=== PATIENT | female | born 1995 | race Caucasian/White ===

== ENCOUNTER 2016-10-04 09:19 | Day surgery (SDC) | payer BC ==
[~2016-10-04 09:19] MED LIST: BRIDION 200MG/2ML IV ONE; DIPRIVAN 200 MG/20 ML IV ONE; Decadron 4 MG INJ IV ONE; Quelicin Fliptop 200 MG/10 ML IV ONE; SUBLIMAZE 100 MCG/2 ML IV ONE; TORAdol 30 mg Injection IV ONE; Versed 2 MG/2 ML Injection IV ONE; Zemuron 100 MG/10 ML IV ONE; Zofran 4 MG/2 ML VIAL IV ONE
[2016-10-04] MEDS ORDERED: MEFOXIN 2 GM PREMIX** 50 ML IV ONE (09:24)
[2016-10-04] MEDS ORDERED: Pepcid 20 MG VIAL IV ONE (09:24)
[2016-10-04] MEDS ORDERED: Lactated Ringers 1,000 ML IV SCH (09:30)
--- NOTE | 2016-10-04 11:59 | HP ---
PROCEDURE DATE: 10/04/16 HISTORY OF PRESENT ILLNESS: The patient is a 22 y/o who recently had a 2nd attack since she has been . She delivered about 10 months ago. Has had some diarrhea and nausea with spicy food/greasy food and some upper abdominal pain radiating to her back. US showed cholelithiasis. [place] she had symptomatic cholelithiasis, chronic cholecystitis. PAST MEDICAL HISTORY: She had some type 2 diabetes, but no symptoms over the past year. It is unclear whether that was any gestational diabetes or not, but she says she hasn't had any symptoms over the past year. CURRENT MEDICATIONS: None. ALLERGIES: SULFA, SHELLFISH, AND PEANUTS. PAST SURGICAL HISTORY: She had cystoscopy in the past. FAMILY HISTORY: Diabetes, heart disease. SOCIAL HISTORY: No smoking or alcohol abuse. REVIEW OF SYSTEMS: 10 systems reviewed. No chest pains or palpitations. Other systems negative or noncontributory other than above and per preadmission questionnaire. PHYSICAL EXAMINATION: GENERAL: No acute distress. HEENT: Sclerae nonicteric. NECK: No JVD. CHEST: Equal excursion. Nonlabored breathing. CVS: Regular rate and rhythm. ABDOMEN: Soft. Some mild tenderness in right upper quadrant. No peritoneal signs. EXTREMITIES: No significant edema. NEURO: Alert, moving extremities symmetrically. No gross motor deficits noted. IMPRESSION: 1. SYMPTOMATIC CHOLELITHIASIS. ON ULTRASOUND THEY QUESTIONED WHETHER THERE WAS A 3.4 CM GALLSTONES, NO WALL THICKENING. FEEL SHE HAS GOT SYMPTOMATIC CHOLELITHIASIS, PROBABLE CHRONIC CHOLECYSTITIS. FELT SHE WOULD BENEFIT FROM CHOLECYSTECTOMY. Risks and benefits explained in detail, but not limited to, bleeding; infection; risk of trocar injury or hernia; small risk of bowel, bladder, or blood vessel injury; small risk of bile leak, bile duct injury, or retained stone or sludge possibly requiring further procedures either open or endoscopic retrograde cholangiopancreatography; general risk of anesthesia, deep vein thrombosis, pulmonary embolism, or pneumonia; perioperative risks of aches, pains, bloating, constipation and/or loose stools possibly chronic in nature; possibility that this procedure may not improve her symptoms and she may need further work-up and/or testing or other studies or procedures or endoscopy. She understands and agrees to the planned procedure. Will proceed with laparoscopic cholecystectomy, possible open as an outpatient.
[2016-10-04] MEDS ORDERED: OFIRMEV 100 ML IV ONE (12:07)
[2016-10-04] MEDS ORDERED: DILAUDID 2 MG INJECTION ONE (13:13)
[2016-10-04] MEDS ORDERED: Zofran 4 MG/2 ML VIAL ONE (13:25)
--- NOTE | 2016-10-04 13:51 | OP ---
SURGERY DATE: 10/04/15 SURGERY TIME: 1153 PREOPERATIVE DIAGNOSIS: 1. SYMPTOMATIC CHOLELITHIASIS, CHRONIC CHOLECYSTITIS. POSTOPERATIVE DIAGNOSIS: 1. SYMPTOMATIC CHOLELITHIASIS, CHRONIC CHOLECYSTITIS. PROCEDURE: 1. Laparoscopic cholecystectomy. SURGEON: Dr. Odilon Cali. ANESTHESIA: General. ESTIMATED BLOOD LOSS: Minimal. INDICATIONS: As noted above. Risks and benefits explained in detail, but not limited to. Consent was obtained. DESCRIPTION OF PROCEDURE AND FINDINGS: The patient was taken to the OR. General anesthesia was induced. The abdomen was prepped and draped in the usual sterile fashion. After official time-out, no disagreement in planned procedure. Transverse incision made at the supraumbilical area. Fascia grasped and pulled up. Veress needle inserted. Tested with saline. Pneumoperitoneum accomplished insufflating from an opening pressure of 0-15. A 5 mm epigastric port and two 5 mm right upper quadrant ports were placed under direct vision with the camera. There was no evidence of any intraabdominal injury secondary to trocar insertion. The gallbladder was grasped. The top of it was somewhat intrahepatic. It was retracted up over the edge of the liver. Dissection of the chronic inflammation posterolateral slowly, carefully accomplished until the critical view was obtained. The main cystic artery was clipped X 3 and divided in the usual fashion. Again, the cystic duct/infundibular area junction slowly had been carefully well skeletonized so the critical view was obtained both anteriorly and posteriorly. Once this was accomplished, the cystic duct was then clipped X 3 and divided in the usual fashion. The gallbladder was then slowly, carefully dissected free from the point of vascular gallbladder bed with multiple small oozing side branches off the cystic artery necessary to be clipped directly on the gallbladder wall. This took some time, but the gallbladder slowly, carefully dissected free. Just prior to releasing the final attachments to the anterior edge of the liver, one of the graspers tore a small hole in the gallbladder leaking a small amount of bile, but there was no evidence of any stone spillage. A copious amount of irrigation was irrigated until clear. The gallbladder was decompressed. The gallbladder was released from its final attachments to the anterior edge of the liver, placed in a Pleatman's sac, and pulled free and pass off the umbilical port site. Port was replaced. Carefully inspecting the liver bed, there was a pulsatile ooze from the superficial arterial branch a cm or so from the anterior edge of the liver. This was necessary to place a couple additional clips on this. Appeared to have good hemostasis at this point. A copious amount of irrigation irrigating until clear. Clips were noted to be in place in the cystic duct/cystic artery stumps. There were no signs of any active bleeding or bile leakage. It was felt there was no benefit of drain placement at this point. At this point, the fascial defect at the 10-11 site was closed with the puncture closure device under direct vision with the camera with #1-0 Vicryl. Pneumoperitoneum decompressed. Wounds irrigated out. Skin incision closed with 4-0 Vicryl. Steri-strips and sterile dressing applied. 0.25% Marcaine local had been injected along each skin incision and fascial defect. The patient tolerated the procedure well. There were no immediate complications. Findings were discussed with the family out in the waiting area.
[2016-10-04] MEDS ORDERED: Sensorcaine 0.25% 10 ML ONE (14:31)
[2016-10-04] MEDS ORDERED: Lactated Ringers 0 ML IV ONE (14:31)
[2016-10-04 15:08] VITALS: O2SAT 95
[2016-10-04 15:44] VITALS: BP 115/62; PULSE 56
== END 2016-10-04 15:30 | disposition home or self-care (01) ==
LOC: SDC 09:19
PROVIDERS: ATTEND Surgery
PROC: 0FT44ZZ Resection of Gallbladder, Percutaneous Endoscopic Approach (ICD-10-PCS; principal; 2016-10-04)
DX: K80.10 Calculus of gallbladder with chronic cholecystitis without obstruction (principal)
CPT/HCPCS: 00790; 36415; 84702; J0330; J0694; J1100; J1170; J1885; J2250; J2405; J2704; J3010

== ENCOUNTER 2017-05-27 12:37 | Emergency (ER) | payer BC, OTHER ==
[2017-05-27 13:22] LABS: BASOPHIL % 0.1 % (0.0-0.4); Eosinophil % 0.6 % (0.00-5.0); Granulocytes % 67.7 % (36.0-66.0); Lymphocytes % 23.7 % (24.0-44.0); Mean Cell Volume 83.2 fl (78-100); Mean Corpuscular Hemoglobin 28.3 pg (26-32); Mean Platelet Volume 10.1 fl (6-9.5); Monocytes % 7.9 % (0.0-12.0); Platelet Count 204 K/mm3 (150-450); Red Blood Count 4.53 M/mm3 (4.1-5.4); Red Cell Distribution Width 13.5 % (11.5-14.0); White Blood Count 6.9 K/mm3 (4.0-10.5)
[2017-05-27 13:45] LABS: Collection Type CCMS
[2017-05-27 13:46] LABS: Bilirubin NEGATIVE (NEGATIVE); Blood NEGATIVE Ery/ul (0-5); COMPLETE URINE MICROSCOPIC? YES; Glucose NEGATIVE (NEGATIVE); Leukocyte Esterase TRACE (NEGATIVE)
--- NOTE | 2017-05-27 13:48 | ERPHSYRPT ---
- History of Present Illness Time Seen by Provider: 05/27/17 13:02 Source: patient Patient Subjective Stated Complaint: pt states she believes she is around 11 weeks and states she began having lower abdominal cramping. states pain started at 0300 this morning. denies any vaginal bleeding or spotting. denies any dysuria. Triage Nursing Assessment: pt pink, warm, dry. abdomen soft. pt afebrile. Physician History: CC: pelvic cramping Hx: 21 y/o patient of Dr Nice is around 11 weeks . She noted pelvic cramping since early AM today, moderate in nature. She has no vaginal bleeding. Normal urination. No vaginal discharge. Last intercourse one week ago. Last was uncomplicated. Timing/Duration: today Allergies/Adverse Reactions: cashew nut Allergy (Severe, Verified 05/27/17 13:03) Difficulty Breathing peanut Allergy (Severe, Verified 05/27/17 13:03) Difficulty Breathing shellfish derived Allergy (Severe, Verified 05/27/17 13:03) Difficulty Breathing Sulfa (Sulfonamide Antibiotics) Allergy (Severe, Verified 05/27/17 13:03) Difficulty Breathing Home Medications: Vits W-Ca,Fe,FA(<1Mg) [] 1 each PO DAILY 05/27/17 [History] Hx Tetanus, Diphtheria Vaccination/Date Given: Yes (up to date) Hx Influenza Vaccination/Date Given: No Hx Pneumococcal Vaccination/Date Given: No - Review of Systems Constitutional: No Fever, No Chills Eyes: No Symptoms Ears, Nose, & Throat: No Symptoms Abdominal/Gastrointestinal: Abdominal Pain (pelvic cramping) Genitourinary Symptoms: , No Dysuria, No Vaginal Bleeding Skin: No Rash Neurological: No Headache - Past Medical History Pertinent Past Medical History: No Neurological History: No Pertinent History ENT History: No Pertinent History Cardiac History: Other Respiratory History: No Pertinent History Endocrine Medical History: Diabetes Type II Musculoskeletal History: No Pertinent History GI Medical History: Gallbladder Disease History: Other Psycho-Social History: No Pertinent History Female Reproductive Disorders: No Pertinent History Other Medical History: pt states she has a heart murmur. - Past Surgical History Past Surgical History: Yes Neuro Surgical History: No Pertinent History Cardiac: No Pertinent History Respiratory: No Pertinent History Gastrointestinal: Cholecystectomy Genitourinary: Other Musculoskeletal: No Pertinent History Female Surgical History: No Pertinent History Other Surgical History: cystoscopy - Social History Smoking Status: Never smoker Exposure to second hand smoke: No Drug Use: none Patient Lives Alone: No - Female History Hx Last Menstrual Period: 2016 Expected Date of Delivery: 12/15/17 - Nursing Vital Signs Nursing Vital Signs: Initial Vital Signs Temperature 99.1 F 05/27/17 12:56 Pulse Rate 76 05/27/17 12:56 Respiratory Rate 18 05/27/17 12:56 Blood Pressure 113/56 05/27/17 12:56 O2 Sat by Pulse Oximetry 99 05/27/17 12:56 Pain Scale Pain Intensity 1 - Physical Exam General Appearance: alert Eye Exam: PERRL/EOMI Ears, Nose, Throat Exam: moist mucous membranes Gastrointestinal/Abdomen Exam: soft, No tenderness, No distention Pelvic Exam: normal external exam, vaginal discharge (copious thin white liquid) , other (closed cervix, no bleeding), No adnexal tenderness Extremity Exam: normal inspection, normal range of motion Neurologic Exam: alert, oriented x 3, cooperative, sensation nml, No motor deficits Skin Exam: warm, dry, No rash SpO2 Interpretation: normal SpO2: 99 Oxygen Delivery: Room Air - Course Nursing assessment & vital signs reviewed: Yes - Radiology Ultrasound Exam OB Ultrasound: Other (12+ week IUP with good FHR and movement per RDMS) Ordered Tests: Active Orders 24 hr Category Date Time Status Pelvic Exam Assist STAT Care 05/27/17 13:02 Active OB <14 WKS 1ST GESTATION [US] Stat Exams 05/27/17 13:33 Ordered CBC W DIFF Stat Lab 05/27/17 13:15 Completed CULTURE,URINE Stat Lab 05/27/17 13:20 Received HCG, Quantitative (Inhouse) Stat Lab 05/27/17 13:15 Completed HCG,QUALITATIVE URINE Stat Lab 05/27/17 13:03 Completed UA W/ MICROSCOPIC Stat Lab 05/27/17 13:20 Completed Wet Prep Stat Lab 05/27/17 13:30 Completed Lab/Rad Data: Laboratory Result Diagrams 05/27/17 13:15 Laboratory Results 05/27/17 05/27/17 05/27/17 Range/Units 13:30 13:20 13:15 WBC (4.0-10.5) K/mm3 RBC (4.1-5.4) M/mm3 Hgb (12.0-16.0) gm/dl Hct (35-47) % MCV (78-100) fl MCH (26-32) pg MCHC (32-36) g/dl RDW (11.5-14.0) % Plt Count (150-450) K/mm3 MPV (6-9.5) fl Gran % (36.0-66.0) % Lymphocytes % (24.0-44.0) % Monocytes % (0.0-12.0) % Eosinophils % (0.00-5.0) % Basophils % (0.0-0.4) % Basophils # (0-0.4) Beta HCG, Quant 24268 H (0-6) IU/L Ur Collection Type CCMS Urine Color YELLOW (YELLOW) Urine Appearance CLEAR (CLEAR) Urine pH 7.0 (5-6) Ur Specific [place] 1.010 (1.005-1.025) Urine Protein NEGATIVE (Negative) Urine Ketones MODERATE (NEGATIVE) Urine Blood NEGATIVE (0-5) Stepan/ul Urine Nitrite NEGATIVE (NEGATIVE) Urine Bilirubin NEGATIVE (NEGATIVE) Urine Urobilinogen NORMAL (0-1) mg/dL Ur Leukocyte Esterase TRACE (NEGATIVE) Urine Microscopic RBC 0-2 (0-2) /HPF Urine Microscopic WBC 5-10 (0-5) /HPF Ur Epithelial Cells MODERATE (FEW) /HPF Urine Bacteria FEW (NEGATIVE) /HPF Urine Mucus MODERATE (NEGATIVE) /HPF Urine Glucose NEGATIVE (NEGATIVE) mg/dL Urine HCG, Qual (Negative) WBC (Wet Prep) Moderate RBC (Wet Prep) Rare Epi Cells (Wet Prep) Moderate Bacteria (Wet Prep) Rare Clue Cells (Wet Prep) None Seen Trichomonas (Wet Prep) None Seen Budding Yeast (Wet Prp) None Seen Specimen Received 05-27-17 1345 05/27/17 05/27/17 Range/Units 13:15 13:03 WBC 6.9 (4.0-10.5) K/mm3 RBC 4.53 (4.1-5.4) M/mm3 Hgb 12.8 (12.0-16.0) gm/dl Hct 37.7 (35-47) % MCV 83.2 (78-100) fl MCH 28.3 (26-32) pg MCHC 34.0 (32-36) g/dl RDW 13.5 (11.5-14.0) % Plt Count 204 (150-450) K/mm3 MPV 10.1 H (6-9.5) fl Gran % 67.7 H (36.0-66.0) % Lymphocytes % 23.7 L (24.0-44.0) % Monocytes % 7.9 (0.0-12.0) % Eosinophils % 0.6 (0.00-5.0) % Basophils % 0.1 (0.0-0.4) % Basophils # 0.01 (0-0.4) Beta HCG, Quant (0-6) IU/L Ur Collection Type Urine Color (YELLOW) Urine Appearance (CLEAR) Urine pH (5-6) Ur Specific [place] (1.005-1.025) Urine Protein (Negative) Urine Ketones (NEGATIVE) Urine Blood (0-5) Stepan/ul Urine Nitrite (NEGATIVE) Urine Bilirubin (NEGATIVE) Urine Urobilinogen (0-1) mg/dL Ur Leukocyte Esterase (NEGATIVE) Urine Microscopic RBC (0-2) /HPF Urine Microscopic WBC (0-5) /HPF Ur Epithelial Cells (FEW) /HPF Urine Bacteria (NEGATIVE) /HPF Urine Mucus (NEGATIVE) /HPF Urine Glucose (NEGATIVE) mg/dL Urine HCG, Qual POSITIVE (Negative) WBC (Wet Prep) RBC (Wet Prep) Epi Cells (Wet Prep) Bacteria (Wet Prep) Clue Cells (Wet Prep) Trichomonas (Wet Prep) Budding Yeast (Wet Prp) Specimen Received - Progress Progress Note: 05/27/17 14:12 GC/CT pending. Will release with miscarriage precautions. She has follow up with Dr Nice. Counseled pt/family regarding: lab results, diagnosis, need for follow-up, rad results - Departure Time of Disposition: 14:12 Departure Disposition: Home Clinical Impression: 12 week intrauterine , Pelvic cramping Condition: Stable Critical Care Time: No Referrals: CHERELLE NICE [Primary Care Provider] - Instructions: -- Discomforts and Remedies, Threatened Additional Instructions: Drink plenty of fluids. No intercourse. Follow up next week with Dr Nice.
[2017-05-27 13:49] LABS: ADD URINE CULTURE? YES (NO); Bacteria FEW /HPF (NEGATIVE); Epithelial Cells MODERATE /HPF (FEW); Mucus MODERATE /HPF (NEGATIVE)
[2017-05-27 14:01] LABS: Bacteria Rare; Clue Cells None Seen; Trichomonas None Seen; Yeast None Seen
[2017-05-27 14:14] VITALS: O2SAT 99
[2017-05-27 14:26] VITALS: BP 98/69; PULSE 72
[2017-05-27 15:17] LABS: CHLAMYDIA DNA NEGATIVE
--- NOTE | 2017-05-30 11:18 | XRAY ---
Indication: Cramping. Two-dimensional transabdominal early OB ultrasound performed. Comparison: None There is a single intrauterine gestational sac with presence of a single pole. Mean crown-rump length measures 5.61 cm corresponding to 12 weeks 1 day. heart rate 162 BPM. No abnormal subchorionic fluid collection. Left and right ovaries unremarkable. No suspicious adnexal mass or free fluid. Impression: Single viable intrauterine measuring 12 weeks 1 day. Expected date confinement is December 08, 2017.
== END 2017-05-27 14:26 | disposition home or self-care (01) ==
LOC: ED 12:37
DX: O26.891 Other specified pregnancy related conditions, first trimester (principal); R10.9 Unspecified abdominal pain
CPT/HCPCS: 36415; 76801; 81000; 84702; 84703; 85025; 86850; 86900; 86901; 87086; 87210; 87490; 87590; 99284